=== PATIENT | female | born 1955 | race Caucasian/White ===

== ENCOUNTER → 2021-01-23 10:42 | Outpatient (CLI) | payer MEDICARE, BC, SELFPAY ==
[2021-01-23 11:18] LABS: Bacteria Urine None Seen; RBC Urine None Seen (0-5/HPF); WBC Urine None Seen (0-5/HPF)
[2021-01-23 12:08] LABS: Add Manual Diff / Slide Review NO; Basophils Absolute Auto 0 /uL (0-100); Basophils Percent Auto 0.5 % (0-2); Eosinophils Absolute Auto 100 /uL (0-450); Eosinophils Percent Auto 1.4 % (2-4); Hematocrit 47.1 % (36-46); Hemoglobin 16.1 g/dL (12.0-16.0); Lymphocytes Absolute Auto 1700 /uL (1100-4500); Lymphocytes Percent Auto 34.8 % (25-40); Mean Corpuscular HGB Conc 34.2 % (30-36); Mean Corpuscular Hemoglobin 30.2 PG (26-34); Mean Corpuscular Volume 88.3 fL (80-100); Monocytes Absolute Auto 500 /uL (0-900); Monocytes Percent Auto 10.4 % (3-14); Neutrophils Absolute Auto 2500 /uL (1500-7000); Neutrophils Percent Auto 52.9 % (50-75); Platelet Count 225 X10^3/uL (150-400); Red Blood Cell Count 5.33 X10^6/uL (4.0-5.2); Red Cell Distribution Width 13.9 % (11.6-14.8); White Blood Cell Count 4.8 X10^3/uL (4.5-11.0)
[2021-01-23 12:16] LABS: Appearance Urine UA CLEAR; Bilirubin Urine UA NEGATIVE (NEGATIVE); Color Urine UA YELLOW; Glucose Urine UA NEGATIVE (Negative); Ketones Urine UA NEGATIVE (NEGATIVE); Leukocyte Esterase Urine UA NEGATIVE (NEGATIVE); Nitrite Urine UA NEGATIVE (Negative); Occult Blood Urine UA NEGATIVE (Negative); Protein Urine UA NEGATIVE (Negative); Urobilinogen Urine UA 0.2 E.U./dL (0.2)
[2021-01-23 12:24] LABS: pH Urine UA 7.5 (4.5-8.0)
[2021-01-23 12:26] LABS: Hemoglobin A1C% w Est Avg Glu 5.9 % (4.0-6.0)
[2021-01-23 12:30] LABS: BUN Creatinine Ratio 25.9 (6-22); Blood Urea Nitrogen 14 mg/dL (7-17); Calcium 10.4 mg/dL (8.4-10.2); Carbon Dioxide 24 mmol/L (22-32); Chloride 107 mmol/L (98-107); Estimated Glomerular Filt Rate > 60.0 mL/min (>60); Glucose 105 mg/dL (80-110); HEMOLYSIS < 15 (0-50); Potassium 4.4 mmol/L (3.4-5.1); Sodium 138 mmol/L (137-145)
[2021-01-23 12:37] LABS: Amorphous Sediment Urine 1+; Culture Indicated Urine Cult Not Indicated
== END ==
PROVIDERS: Referring Provider Orthopaedic Surgery; Visit Provider Orthopaedic Surgery
DX: Z01.818 Encounter for other preprocedural examination (principal); R73.9 Hyperglycemia, unspecified; Z01.812 Encounter for preprocedural laboratory examination; N39.0 Urinary tract infection, site not specified
CPT/HCPCS: 36415; 80048; 81001; 83036; 85025; 93005; 93010

== ENCOUNTER → 2021-02-04 10:54 | Outpatient (CLI) | payer MEDICARE, BC, SELFPAY ==
--- NOTE | 2021-02-04 | DI.MRI.S_ITS ---
PROCEDURE: MR KNEE LT WO CON INDICATIONS: Unilateral post-traumatic osteoarthritis, left kne TECHNIQUE: [employer] protocol was performed. Noncontrast sagittal PD fast spin echo and T2 fast spin echo with fat saturation, sagittal 3-D FLASH with fat saturation; coronal T1 spin echo and PD fast spin echo with fat saturation, and axial PD fast spin echo with fat saturation through the knee. COMPARISON: None. FINDINGS: Menisci: Medial meniscus: Severe macerated tear involving the posterior horn body and posterior root of the medial meniscus. There is near complete extrusion Lateral meniscus: Lateral meniscal tear involving the body with truncation of the free margin. Cruciate ligaments: Anterior cruciate ligament: Not seen in keeping with rupture although this could be a chronic finding. Posterior cruciate ligament: Intact. Medial structures: The medial collateral ligament: There is medial bowing of the medial collateral ligament, with mild internal signal changes and no complete rupture. There is adjacent soft tissue edema. The appearance could reflect reactive changes to medial compartment pathology, versus low-grade sprain of the MCL. Semimembranosus tendon: Mild insertional tendinopathy. Visualized pes anserinus tendons: Intact. Bursal fluid: none. Lateral structures: The lateral collateral ligament intact. Biceps femoris tendon appears intact. Popliteus tendon grossly unremarkable. Iliotibial band appears intact. Anterior structures: Quadriceps tendon: Intact. Medial patellofemoral ligament: Intact. Lateral patellofemoral ligament: Intact. Patellar tendon: Mild tendinopathy. Anterior soft tissues: Prepatellar and superficial infrapatellar subcutaneous edema/fluid. Deep infrapatellar region: Trace fluid Bones and cartilage: Marrow: No focal marrow contusion or discrete low signal fracture line. Medial compartment: Full-thickness femoral and tibial articular cartilage loss Lateral compartment: Diffuse partial-thickness femoral and tibial articular cartilage loss. Patellofemoral compartment: Partial-thickness loss and surface fraying of the cartilage overlying the medial patellar facet and the central femoral trochlea. Joint space: Effusion: No pathologic knee joint effusion. Popliteal fossa: No Akers's cyst. Loose bodies: None. IMPRESSION: Severe macerated tear involving the medial meniscus posterior horn, body and posterior root. Near complete extrusion. Adjacent MCL changes as above. Lateral meniscal tear involving the body. Rupture of the anterior cruciate ligament, possibly chronic finding. Mild patellar tendinopathy Severe degenerative joint disease with full-thickness chondral loss seen in the medial compartment. Dictated by: Rolando Dawson M.D. on 02/04/2021 at 12:36 Approved by: Rolando Dawson M.D. on 02/04/2021 at 12:42
== END ==
PROVIDERS: Referring Provider Orthopaedic Surgery; Visit Provider Orthopaedic Surgery
DX: M17.32 Unilateral post-traumatic osteoarthritis, left knee (principal); S83.242A Other tear of medial meniscus, current injury, left knee, initial encounter; S83.282A Other tear of lateral meniscus, current injury, left knee, initial encounter; S83.512A Sprain of anterior cruciate ligament of left knee, initial encounter
CPT/HCPCS: 73721

== ENCOUNTER → 2021-03-09 09:11 | Outpatient (CLI) | payer MEDICARE, BC, SELFPAY ==
[2021-03-09 11:13] LABS: COVID19 -Nasal RAPID Negative (Negative)
== END ==
PROVIDERS: PCP Nurse Practitioner; Visit Provider Nurse Practitioner
DX: Z01.812 Encounter for preprocedural laboratory examination (principal); Z20.822 Contact with and (suspected) exposure to COVID-19
CPT/HCPCS: 87635; C9803

== ENCOUNTER 2021-03-11 08:30 | Observation (INO) | payer MEDICARE, BC, SELFPAY ==
[2021-02-26 08:50] VITALS: BMI 33.3
[2021-03-10] VITALS (15 sets, daily range): BP systolic 80–124; BP diastolic 49–89; PULSE 70–93; RESP 8–20; TEMP 35.7–36.9; O2SAT 92–99; BMI 33.3
--- NOTE | 2021-03-10 06:38 | DI.RAD.S_ITS ---
PROCEDURE: XR KNEE LT 1TO2V INDICATIONS: left TKA TECHNIQUE: Two view(s) of the knee acquired. COMPARISON: None. FINDINGS: Bones: Patient is status post knee joint arthroplasty. Hardware components are in expected positions. Visualized bony structures are intact. Soft tissues: Overlying postoperative changes are noted. IMPRESSION: Expected postoperative appearance post left TKA. Dictated by: Elda Nolasco M.D. on 03/10/2021 at 13:01 Approved by: Elda Nolasco M.D. on 03/10/2021 at 13:01
[2021-03-10] MEDS: LACTATED RINGERS 1,000 ML 42 ML IV ×2 (07:00→09:40)
[2021-03-10] MEDS: ACETAMINOPHEN 325 MG TABLET 975 MG PO (07:11)
[2021-03-10] MEDS: CELECOXIB 200 MG CAPSULE PO (07:11)
[2021-03-10] MEDS: PREGABALIN 75 MG CAPSULE PO (07:11)
[2021-03-10] MEDS: VANCOMYCIN 1,000 MG/200 ML PIGGYBACK 200 MG IV (07:12)
--- NOTE | 2021-03-10 07:32 | P.OP_ITS ---
Operative Date/Time/Diagnoses Date of procedure: 03/10/21 Time of procedure: 07:55 Pre-op diagnosis: Left knee osteoarthritis history ACL reconstruction Post-op diagnosis: same Procedure & Clinicians Procedure: Left total knee arthroplasty Same procedure as scheduled: Yes Indications: The patient has had progressively worsening left knee pain with radiographic changes consistent with arthritis. Non-operative management has failed and the patient has requested total knee replacement. The risks, benefits and alternatives to surgery were discussed with the patient prior to proceeding. Risks discussed included, but were not limited to, failure to relieve pain, stiffness, infection, nerve damage, deep venous thrombosis, pulmonary embolism, stroke, coma, heart attack, permanent paralysis and , as well as the potential need for eventual revision of the prosthetic. Surgeon: Nati Negron Refueling Ramp Supervisor: Obey Cunningham Anesthesia Type: Spinal Operative Notes Findings: Severe left knee osteoarthritis, good stability Closure Type: primary Specimen(s): none sent Prosthetic devices, grafts, tissues, transplants, or devices: Negron [employer] [facility] BCS 2 size 5 femur, size 4 tibia, +9 poly, 35 mm patella +9 Applied: drain(s) Estimated Blood Loss (mL): 250 Blood products transfused: none Tourniquet time (min): 85 Procedure in detail: The patient was seen in the pre-operative area, where the patient identified the left knee as the operative site and this was marked with my initials. The patient received pre-operative antibiotics, and was taken to the operating room and placed on the operative table in the supine position. After satisfactory anesthesia, a hospice care sales consultant out was performed. The left leg was encircled with a tourniquet about the proximal thigh, and the leg was prepared from the toes to the tourniquet with ChloroPrep in the usual fashion and draped through sterile drapes. The leg was elevated and exsanguinated with Eschmark bandage and the tourniquet inflated to [250] mmHg pressure. The knee was approached through an approximately 18 cm incision centered over the patella and carried into the knee through a medial parapatellar arthrotomy. A portion of the medial and lateral meniscus was resected. Soft tissue was carefully mobilized around the patella the patella was measured with a caliper. Bone was resected from the patella and the patellar height was reconstituted with up an appropriate sized patellar component. For a cover was then placed on the patella. A small amount of additional medial and lateral meniscus was resect ed. The visionary guide fit was inadvertently dropped. A hole was made in the medullary canal. The femur was cut at 5? standard cut which looked like an appropriate distal femoral cut. It was sized and noted to be a 5 which was consistent with the preoperative plan. The rotation was assessed and 3? of external rotation looked appropriate. The appropriate size femoral guide was placed on the distal femur and finishing cuts were made. There was no evidence of notching. The anterior, posterior and chamfer cuts were then made. The posterior osteophytes and soft tissues were then removed. The posterior capsule was injected with part of a mixture of 60 ml 0.25% Marcaine mixed with 20 ml Exparel for post operative pain control. The remainder of this mixture was injected into the capsule and subcutaneous tissues during cement curing. The tibia was prepared and the visionaire guide fit well to the distal tibia. The rotation was assessed. The patient was placed in extension residual medial and lateral meniscus as well as any residual bone was carefully resected. [No] additional tibia was resected. Hemostasis was achieved especially posteriorly. Additional local was injected into the posterior capsule. The extension gap was assessed and additional releases for gap balancing were performed as necessary. The femoral component was trial was placed and the notch was finished. Trial tibial and femoral components were then placed and the knee placed through a range of motion. Range of motion was [0-130], with good stability throughout the range. The trials were then removed, and the tibia was finished. The bone was prepared with pulsatile lavage, and dried with a sponge. Cement was applied and the final prosthetics placed. Excess cement was removed during and after cement curing. A brief Betadine soak was performed. After confirming there was no extruded cement posteriorly, the final tibial insert was placed. The knee was copiously irrigated and the tourniquet deflated. Hemostasis was obtained with the Bovie cautery. A drain was placed and brought out superolaterally. The capsule was closed with interrupted # 1 Vicryl suture. The subcutaneous layer was closed with barbed sutures, and the skin with a running 3-0 V-Lock suture and Surgical glue. An Aquacel Ag dressing was applied and the patient was taken to recovery having tolerated the procedure well. Complications: none Post-operative Condition: stable Disposition: Acute Care Plan for aftercare: The patient will be maintained on a standard total knee replacement protocol with weight bearing as tolerated. The patient will receive aspirin and sequential compression devices for DVT prophylaxis. The patient will be discharged home when safe for the home environment.
--- NOTE | 2021-03-10 07:32 | PM.PREOP ---
Pre-operative Note COVID-19 COVID-19 status: Negative Interval Note History & Physical reviewed/Exam performed by Physician: Yes Changes to H&P: No
[2021-03-10] MEDS: CLINDAMYCIN 900 MG/50 ML PIGGYBACK 50 MG IV ×2 (08:18→15:56)
[2021-03-10] MEDS: BUPIVACAINE 0.25% W/ EPI 30 ML VIAL 60 ML INJ (08:27)
[2021-03-10] MEDS: TRANEXAMIC ACID 1,000 MG VIAL 2000 MG INJ (08:27)
[2021-03-10] MEDS: BUPIVACAINE LIPOSOME 266 MG/20 ML VIAL INJ (08:28)
[2021-03-10] MEDS: SODIUM CHLORIDE IRRIG SOLUTION 250 ML, POVIDONE-IODINE SPONGE STICKS 1 APPLIC IRR (08:29)
--- NOTE | 2021-03-10 08:32 | SUR.OPER ---
Supine on padded OR bed. Pillow under head, arms secured on padded armboards <90 degree abduction. Safety belt across torso. Non-operative leg secured with tape over blanket over lower leg. Operative leg secured in DeMayo/Yeyo/Nathe positioner. Foam padded brace at thigh of operative leg.
[2021-03-10] MEDS: fentaNYL 100 MCG/2 ML INJ IV ×2 (10:41→10:45)
[2021-03-10] MEDS: OXYCODONE IR 5 MG TABLET PO ×3 (10:42→18:03)
--- NOTE | 2021-03-10 11:55 | PC.NURSE ---
Day shift: Pt on unit from PACU at approx 1150. She is A&Ox4. Tolerating calf SCD's. Her spouse in room for support. On 2L NC 96%. Encouraged to cough and deep breath. Rates left knee pain at 5/10. Don-vac in to be unclamped at 1210 per CABLE TV INSTALLER. Denies any nausea. CMS intact. VS ok with BP 102/60. Denies any chest pain or lightheadedness. Oreinted to room and call light. Agrees to not get OOB w/o help from staff. WILL and Aquacel CDI. Per PACU report don-vac site needed to be reinforced due to some leaking. Quarter sized blood spot on outside of WILL wrap present. Will continue with post-op plan of care.
[2021-03-10] MEDS: LACTATED RINGERS 1,000 ML 100 ML IV (12:17)
[2021-03-10] MEDS: IBUPROFEN 400 MG TABLET PO ×3 (12:24→22:34)
[2021-03-10] MEDS: polyethylene glycoL 3350 17 GM POWD.PACK PO (12:24)
--- NOTE | 2021-03-10 13:10 | PC.NURSE ---
Day shift: Don-vac unclamped at 1210.
--- NOTE | 2021-03-10 13:50 | PT.IIE ---
Current Diagnoses Unilateral post-traumatic osteoarthritis, left knee (03/10/21) Surgery Performed Operation Date: 03/10/21 07:45 Actual Procedures p Total Knee Arthroplasty(Left) - Nati Negron MD Medical History (Last Updated 02/26/21 @ 10:25 by April Evans, RN) Acid reflux Bilateral cataracts Breast cancer, left (2014) History of chemotherapy (2015) Hypercalcemia Hypercalciuria Hypophosphatemia Osteoarthritis Osteopenia Primary hyperparathyroidism Physical Therapy Inpatient Evaluation/Re-Eval M1 PT/OT-IP Prior Functional Status Start: 03/10/21 15:42 Freq: NEEDED Status: Active Protocol: Document 03/10/21 13:50 AB (Rec: 03/10/21 15:59 AB [id number]) Medical Review Prior Functional Status Medical History Reviewed Yes Communication able to make needs known Mobility and Gait pt stated that she is independent with all mobilities and ambulation without AD Social History Household Members spouse Living Arrangements House Number of Floors (Floors) One Floor Number of Stairs To Enter/Railing? 1 step to enter from the garage but can also go in from the front and does not have any steps to enter but pt prefers to go in throught the garage Home Environment High Toilet,Walk in Shower, Built-In Shower Seat Home Equipment Front Wheel Walker,Straight Cane,Shower Seat with Backrest ,Hand Held Shower M2 PT-IP Current Condition Start: 03/10/21 15:42 Freq: NEEDED Status: Active Protocol: Document 03/10/21 13:50 AB (Rec: 03/10/21 15:59 AB [id number]) Physical Therapy Current Condition Current Condition Evaluation Date 03/10/21 Treatment Diagnosis s/p L TKA; difficulty in walking Onset Date 03/10/21 Weight Bearing Status Weight Bearing Status Weight Bear as Tolerated Allowed Weight Bearing Amount (enter % LLE WBAT or #) (%) M3 PT-IP Subjective Start: 03/10/21 15:42 Freq: NEEDED Status: Active Protocol: Document 03/10/21 13:50 AB (Rec: 03/10/21 15:59 AB [id number]) Subjective Physical Therapy Visit Type Type Initial Evaluation Visit Start Time 13:50 Visit Stop Time 14:32 Total Visit Minutes 42 Number of DIFFERENTIAL REPAIRER Visits 0 Physical Therapy Visit Comments Patient Comments agreeable to do PT Therapy Pain Assessment Pain When Pain Assessed At Rest Pain Present Pain Present Pain Reported Location left knee Intensity 4 Scale Used Numeric (0 - 10) Pain Management Techniques Apply Cold,Modification of Treatment,Re-positioning, Timing of Activity with Medications M4 PT-IP Mobility and Gait Start: 03/10/21 15:42 Freq: NEEDED Status: Active Protocol: Document 03/10/21 13:50 AB (Rec: 03/10/21 15:59 AB [id number]) PT-Bed Mobility Assessment Supine to Sit Supine to Sit Standby Assistance Sit to Supine Sit to Supine Standby Assistance Scooting Scooting to Edge of Bed Standby Assistance PT-Transfer Assessment Comments Mobility Comments pt agreed to do PT. informed nurse that hemovac is distended and with blood leak through the josy wrap. nurse checked and re compressed hemovac site. MMT conducted and noticed hemovac is distending again and blood leak through dressing. nurse checked and removed josy wrap, reinforced hemovac site, recompressed hemovac and cleared to do more with PT. noted blood on dressing. BP in supine 124/75. pt complete supine to sit SBA. pt was able to sit on EOB SBA to CGA. c/o lighheadedess and after a few seconds nausea. BP checked in sittin/79. pt sat on EOB for a few more minutes. Nurse came and stated that pt has to go back to bed and the doctor/PA has to make sure that hemovac is ok. pt completed sit to supine SBA. positioned in bed . BP checked: 106/67. continues to c/o nausea. informed nurse. call light and table placed within reach. PT-Balance Assessment Sitting Balance and Reactions Static Sitting Balance Ability Good Dynamic Sitting Balance Ability Fair M5 PT-IP Objective Assessments Start: 03/10/21 15:42 Freq: NEEDED Status: Active Protocol: Document 03/10/21 13:50 AB (Rec: 03/10/21 15:59 AB [id number]) Orientation Orientation/Cognition Level of Alertness Alert Orientation Name,Place,Situation Language Function Ability No Deficits Noted Safety Awareness Understands Safety Issues Memory Description No Deficits Noted Gross Range of Motion Lower Extremity ROM Assessment Within Functional Limits Strength Lower Extremity Strength Assessment Left Impaired Hip 4+/5 Knee 4-/5 Coordination Assessment Gross Coordination Gross Coordination WNL Sensation Assessment Sensation Gross Sensation WNL Muscle Tone Muscle Tone WNL Yes M6 PT-IP Treatment Start: 03/10/21 15:42 Freq: NEEDED Status: Active Protocol: Document 03/10/21 13:50 AB (Rec: 03/10/21 15:59 AB [id number]) Physical Therapy Treatment Education Education Provided Precautions,Weight Bearing Status,Post-Op Packet,Safety M7 PT-IP Assessment and Plan Start: 03/10/21 15:42 Freq: NEEDED Status: Active Protocol: Document 03/10/21 13:50 AB (Rec: 03/10/21 15:59 AB [id number]) PT Summary Assessment and Plan Potential Rehabilitation Potential Good Status of Condition at Evaluation Evolving Summary Impairments Pain,ROM,Strength,Balance, Coordination,Sensation,Tone, Cognition,Bed Mobility, Transfers,Gait,Activity Tolerance Assessment Summary pt s/p L TKA and POD 0. pt willing to do PT but has hemovac issues and was limited with mobility due to this and also has c/o nausea/ lightheadedness with decrease in BP sitting on EOB. will continue to assess mobility for safe d/c home. pt stated that she is set up for outpt PT. Goals Bed Mobility Goal Independent Transfer Goal Independent,Front Wheeled Walker Gait Goal Independent,Front Wheel Walker Gait Distance 150 Other Goals up/down 1 step using FWW SBA Days to Meet Goals 5 Frequency of Treatment Frequency Of Treatment Twice a Day Treatment Plan Physical Therapy Treatment Plan Bed Mobility Training,Transfer Training,Gait Training, Therapeutic Exercise,Balance Retraining,Post Op Education, Discharge Planning,Hot or Cold Pack,Neuromuscular Re-ed, Coordination Retraining,Manual Therapy Precautions Other Precautions LLE WBAT Recommendations To Nursing Amount of Assist Needed PT/OT Assist Only Discharge Recommendations PT Discharge Recommendations Home with Assistance, Outpatient PT Transportation Needs at Discharge Private Vehicle
[2021-03-10] MEDS: ACETAMINOPHEN 325 MG TABLET 650 MG PO ×2 (14:02→22:34)
--- NOTE | 2021-03-10 14:51 | PC.NURSE ---
Day shift: Don-vac is not remaining patent to suction at this time. Small amount of leaking from the insertion area. Reinforced with 4x4 and tegaderm. WILL wrap removed to visualize that site and the distal portion is saturated with blood. Some shadow drainage present in the middle portion as well. Aquacel is approx 50% saturated at this time (1445). PT was asked to not get Pt OOB at this time as well. VS remain WNL. Pt did report that she felt light headed when sitting at the side of the bed. Ximena (WHITE SHOE EXAMINER) was informed about the above and will get this writers message to DR Negron. Dr Negron in OR at this time. THis scientific writer also called into the OR (ext [phone]) and no answer. Pt also remains A&Ox4 and in good spirits. collector of aquarium specimens Mily also looked at Pt's knee at tis time. Will place WILL wrap back on knee at this time.
[2021-03-10] MEDS: ONDANSETRON 4 MG/2 ML INJ IV (18:02)
[2021-03-10] MEDS: DOCUSATE 100 MG CAPSULE PO (22:34)
[2021-03-11] MEDS: OXYCODONE IR 5 MG TABLET PO ×3 (00:14→08:37)
[2021-03-11] MEDS: IBUPROFEN 400 MG TABLET PO ×3 (00:14→08:37)
[2021-03-11] MEDS: CLINDAMYCIN 900 MG/50 ML PIGGYBACK 50 MG IV (00:14)
[2021-03-11 00:20] VITALS: BP 132/77; PULSE 90; RESP 18; TEMP 36.4; O2SAT 97
[2021-03-11 03:00] VITALS: BP 134/72; PULSE 87; RESP 18; TEMP 36.3; O2SAT 97
[2021-03-11 07:39] LABS: Hematocrit 41.4 % (36-46); Hemoglobin 13.9 g/dL (12.0-16.0)
--- NOTE | 2021-03-11 07:50 | P.DS_ITS ---
History of Present Illness History of Present Illness Date Patient Seen: 03/11/21 Time Patient Seen: 07:50 Chief complaint: Left Total Knee Arthroplasty *OPB* Narrative: Refer to previous HPI. Discharge Providers Provider Discharge Date: 03/11/21 Primary care physician: SHAHEEN Hilario Consults: 02/27/21 09:02 Consult to Anesthesiology Routine Comment: Consulting Provider: Anesthesiologist Reason for consultation: PAC courtesy re: Abnormal pre-op EKG 03/10/21 06:38 Consult to Anesthesiology Routine Comment: Consulting Provider: Anesthesiologist Reason for consultation: Regional block for post operative pain control 03/10/21 11:54 Consult to Discharge Planning Routine Comment: Consult to Physical Therapy Evaluate & Treat Comment: Physician Instructions: postop TKA protocol Consult to Respiratory Therapy Evaluate & Treat Comment: Physician Instructions: Evaluate and treat Discharge provider: Obey Cunningham PA-C Summary Hospital Course Discharge Diagnosis: Left knee osteoarthritis Status post left total knee arthroplasty Hospital Course: Patient was admitted to the hospital following the above-listed procedure for the above-listed diagnosis. Following the procedure the patient is a convalescing appropriately in her pain has been managed with current pain management regimen. Aspirin 81 mg twice daily has been administered for DVT prophylaxis along with the assistance of sequential compression devices. Aquacel dressing over the incision site is remain clean, dry, and intact following surgery. Patient has successfully worked on ambulation with the assistance of a front wheel walker with physical therapy. She has remained we ight-bearing as tolerated with the assistance of a front wheeled walker. She has remained in standard total knee replacement protocol. Throughout the course of time the hospital the patient has denied fever, chills, nausea, chest pain, shortness of breath, or urinary retention. Status at Discharge Cognitive/behavioral status at discharge: oriented Functional status at discharge: uses cane/walker Overall status at discharge: patient is progressing back to baseline Exam Vital Signs (past 8 hours): - 03/11/21 00:20 03/11/21 03:00 Temperature 97.6 F 97.4 F L Pulse Rate 90 87 Respiratory Rate 18 18 Blood Pressure 132/77 134/72 Pulse Oximetry 97 97 Oxygen Delivery Method Room Air Oxygen Flow Rate 0 Narrative Exam Narrative: Pleasant 65-year-old female postop day 1 status post left total knee arthroplasty. Patient is resting comfortably in room bed, is in no acute distress, and is alert and oriented x3. Skin is warm and dry, and the skin surrounding the incision site is free of erythema, warmth, induration, or discharge. Aquacel dressing over the incision site is intact, with strike through noted on the distal half of the bandage. Good sensation appreciated throughout the bilateral lower extremities to light touch. Gross motor function intact. Calves are soft and nontender, negative Homans sign. No other signs of DVT appreciated. Const General: cooperative, healthy appearing and comfortable Resp Effort & Inspection: normal respiratory effort and able to speak in complete sentences Skin General: no rashes or lesions noted Objective Labs Result Diagrams: 03/11/21 07:15 Labs: Laboratory Results - last 24 hr 03/11/21 07:15 Hgb 13.9 Hct 41.4 PFSH Medical History Acid reflux Bilateral cataracts Breast cancer, left (2014) History of chemotherapy (2014) Hypercalcemia Hypercalciuria Hypophosphatemia Osteoarthritis Osteopenia Primary hyperparathyroidism Surgical History History of arthroscopy of right shoulder (07/2013) History of hysterectomy (2001) History of lumpectomy of left breast (2014) History of removal of Port-a-Cath History of right knee surgery (2001) Hx of arthroscopy of left knee (2008) Hx of colonoscopy (2014) Hx of left knee surgery (1981) Hx of left knee surgery (1981) Hx of right knee surgery (09/2007) Hx of tonsillectomy Social History household members: spouse Smoking Status: Former smoker alcohol intake: current Discharge Assessment & Plan Assessment and Plan Assessment: Patient is doing well and is stable. Plan of Treatment: Patient is to continue physical therapy in the outpatient setting following discharge from the hospital. First postoperative visit is scheduled for 2 weeks following discharge from hospital. Current pain management regimen is to be continued as it is adequately controlled the patient's pain level. Aspirin 81 mg twice daily is to be continued for 6 weeks for DVT prophylaxis. Aquacel dressing over the incision site is to remain clean, dry, and intact for 2 weeks. Contact clinic if the dressing becomes damaged or soiled. Patient is to remain weight-bearing as tolerated with the assistance of a front wheeled walker, standard total knee replacement protocol. Patient is to contact clinic with any concerns or questions. Any signs of increased redness, swelling, warmth, pain, or discharge from around the incision site should be reported to the clinic. Patient is to avoid placing topical ointments over the incision site or soaking the incision site. Discharge Plan Discharge Plan Patient Disposition: Home Provider Discharge Comment: Patient cleared for discharge pending PT clearance. Discharge orders & Medications Discharge Orders: Discharge (Order); Ordered 03/11/21 Ordered By: Obey Cunningham Prescriptions: New acetaminophen 325 mg Tablet 650 mg PO TID Qty: 90 RF: 0 aspirin 81 mg Tablet,Delayed Release (Dr/Ec) 81 mg PO BID Qty: 90 RF: 0 ibuprofen 400 mg Tablet 400 mg PO Q4HR Qty: 90 RF: 0 oxycodone 10 mg Tablet 10 mg PO Q3HR PRN (Reason: Pain, Severe (7-10)) Qty: 42 RF: 0 Continued cholecalciferol (vitamin D3) [Vitamin D3] 125 mcg (5,000 unit) Tablet 125 mcg PO DAILY RF: 0 Follow up/Referrals: Meme Tate ARNP [Primary Care Provider] - Diet/Activity/Treatments Diet: Diet as Tolerated and Regular Activity: Weight-bearing as tolerated with the assistance of a front wheeled walker. Standard total knee replacement protocol. Skin/Wound/Dressing Care Report to your healthcare provider any signs of infection, such as:: chills, fever, night sweats, unusual drainage and unusual redness Dressing: Aquacel dressing over the incision site is to remain clean, dry, and intact for 2 weeks. Contact clinic if the dressing becomes damaged or soiled. Other wound treatment: Avoid soaking the incision site. Avoid placing topical ointments over the incision site. Visit Report/Discharge Packet Instructions: DI for Knee Replacement Stand Alone Forms: Surgery Discharge Discharge Data Primary Care Provider: Meme Tate Attending Provider: Nati Negron
[2021-03-11 08:12] VITALS: BP 126/71; PULSE 74; RESP 18; TEMP 36.2; O2SAT 96
[2021-03-11] MEDS: CHOLECALCIFEROL (VITAMIN D3) 5,000 UNIT TABLET 5000 UNIT PO (08:37)
[2021-03-11] MEDS: ACETAMINOPHEN 325 MG TABLET 650 MG PO (08:37)
[2021-03-11] MEDS: DOCUSATE 100 MG CAPSULE PO (08:37)
[2021-03-11] MEDS: ASPIRIN EC 81 MG TABLET PO (08:37)
--- NOTE | 2021-03-11 09:20 | PT.IPTN ---
Current Diagnoses Unilateral post-traumatic osteoarthritis, left knee (03/11/21) Surgery Performed Operation Date: 03/10/21 07:45 Actual Procedures p Total Knee Arthroplasty(Left) - Nati Negron MD Physical Therapy Treatment Note M2 PT-IP Current Condition Start: 03/10/21 15:42 Freq: NEEDED Status: Discharge Protocol: Document 03/10/21 13:50 AB (Rec: 03/10/21 15:59 AB [id number]) Physical Therapy Current Condition Current Condition Evaluation Date 03/10/21 Treatment Diagnosis s/p L TKA; difficulty in walking Onset Date 03/10/21 Weight Bearing Status Weight Bearing Status Weight Bear as Tolerated Allowed Weight Bearing Amount (enter % LLE WBAT or #) (%) M3 PT-IP Subjective Start: 03/10/21 15:42 Freq: NEEDED Status: Discharge Protocol: Document 03/11/21 09:20 AB (Rec: 03/11/21 12:32 AB [id number]) Subjective Physical Therapy Visit Type Type Treatment Note Visit Start Time 09:20 Visit Stop Time 09:56 Total Visit Minutes 36 Number of STOCK FEEDER Visits 0 Physical Therapy Visit Comments Patient Comments pt is agreeable to do PT Therapy Pain Assessment Pain When Pain Assessed At Rest Pain Present Pain Present Pain Reported Location left knee Intensity 3 Scale Used Numeric (0 - 10) Pain Management Techniques Apply Cold,Modification of Treatment,Re-positioning, Timing of Activity with Medications M4 PT-IP Mobility and Gait Start: 03/10/21 15:42 Freq: NEEDED Status: Discharge Protocol: Document 03/11/21 09:20 AB (Rec: 03/11/21 12:32 AB [id number]) PT-Bed Mobility Assessment Supine to Sit Supine to Sit Standby Assistance PT-Transfer Assessment Sit to and From Stand Sit to and from Stand Standby Assistance,Use of Upper Extremities Equipment Transfer Assistive Device Gait Belt,Front Wheeled Walker Orthotic/Prosthetic Devices or Brace: No Transfers Transfer Destination Chair Transfer Technique ambulated Transfer Ability Level of Assist Standby Assistance,Contact Guard Assistance,Use of Upper Extremities Comments Mobility Comments BP in supine: 123/73. completed heel slides supin in bed prior to mobility. completed supine to sit SBA. no c/o dizziness. BP: 136/85. pt completed sit to stand SBA and ambulated in room using FWW SBA. pt sat on chair. agreed to do stairs. and completed sit to stand from chair SBA and ambulated using FWW 250 ft SBA. completed up/ down platform step using FWW x 2 sets initially requiring cues but able to complete without cues on 2nd set CGA for safety. pt ambulate dback to her room SBA. agreed to sit up on chair and positioned . call light and table placed within reach. Gait Assessment Gait Gait Assistance Required: Standby Assistance,Contact Guard Assist Distance (Feet) 250 Able to Maintain Weight Bearing Status Yes During Gait Assistive Devices Assistive Device Gait Belt,Front Wheeled Walker Orthotic/Prosthetic Devices or Brace: No Gait Deviations General Gait Pattern Antalgic,Decreased Stride Length,Decreased Feet Clearance Factors Limiting Gait Function Factors Limiting Gait Function Decreased Activity Tolerance, Decreased Strength,Limited Range of Motion,Pain,Poor Balance,Poor Safety Awareness Stair Climbing Assessment Evaluation Level of Assist On Stairs Contact Guard Assistance Devices Stair Climbing Assistive Devices Front Wheel Walker Technique/Endurance Stair Climbing Direction Ascend and Descend Stair Climbing Technique Step to Step Number of Steps Climbed 1 Stair Climbing Set # Repetitions (reps) 2 Comments Stair Climbing Comments pls refer to mobility section for details M5 PT-IP Objective Assessments Start: 03/10/21 15:42 Freq: NEEDED Status: Discharge Protocol: Document 03/10/21 13:50 AB (Rec: 03/10/21 15:59 AB [id number]) Orientation Orientation/Cognition Level of Alertness Alert Orientation Name,Place,Situation Language Function Ability No Deficits Noted Safety Awareness Understands Safety Issues Memory Description No Deficits Noted Gross Range of Motion Lower Extremity ROM Assessment Within Functional Limits Strength Lower Extremity Strength Assessment Left Impaired Hip 4+/5 Knee 4-/5 Coordination Assessment Gross Coordination Gross Coordination WNL Sensation Assessment Sensation Gross Sensation WNL Muscle Tone Muscle Tone WNL Yes M6 PT-IP Treatment Start: 03/10/21 15:42 Freq: NEEDED Status: Discharge Protocol: Document 03/11/21 09:20 AB (Rec: 03/11/21 12:32 AB [id number]) Physical Therapy Treatment Exercises Exercises Heel Slides Education Education Provided Safety M7 PT-IP Assessment and Plan Start: 03/10/21 15:42 Freq: NEEDED Status: Discharge Protocol: Document 03/11/21 09:20 AB (Rec: 03/11/21 12:32 AB [id number]) PT Summary Assessment and Plan Potential Rehabilitation Potential Good Summary Impairments Pain,ROM,Strength,Balance, Coordination,Bed Mobility, Transfers,Gait,Activity Tolerance Progress Towards Goals Slow Progress due to Activity Tolerance Assessment Summary pt requiring SBA with mobility and plans to go home with spouse to assist her. pt may go home when medically stable. pt has outpt PT set up already. Goals Bed Mobility Goal Independent Transfer Goal Independent,Front Wheeled Walker Gait Goal Independent,Front Wheel Walker Gait Distance 150 Other Goals up/down 1 step using FWW SBA Days to Meet Goals 5 Frequency of Treatment Frequency Of Treatment Twice a Day Treatment Plan Physical Therapy Treatment Plan Bed Mobility Training,Transfer Training,Gait Training, Therapeutic Exercise,Balance Retraining,Post Op Education, Discharge Planning,Hot or Cold Pack,Neuromuscular Re-ed, Coordination Retraining,Manual Therapy Precautions Other Precautions LLE WBAT Recommendations To Nursing Amount of Assist Needed Standby Assistance Discharge Recommendations PT Discharge Recommendations Home with Assistance, Outpatient PT Transportation Needs at Discharge Private Vehicle
--- NOTE | 2021-03-11 10:29 | PC.NURSE ---
A&Ox4. VSS. Pain 11/08, given PRN oxycodone and scheduled Tylenol and ibuprofen which brought her pain down to a 2. Worked with PT. Discharged instructions reviewed, questions answered. Prescriptions given to patient. IV removed, catheter intact, tolerated well. driving home.
--- NOTE | 2021-03-11 11:48 | CM.DANOTE ---
DCP/assessment: Reviewed chart. Patient is a 65yr old female admitted to [facility] for elective left TKA performed on 03-10-[address] Negron. PCP is Dr. Jimenez. Primary payor is 1)Medicare 2)[facility]. Met with patient explained CM/SW role. Patient alert and oriented, preparing to d/c home at time of visit. Patient reports that she has all needed DME and outpatient therapy arranged. Patient cleared by therapy to return home when stable. P: Home today with no additional d/c planning needs. HOLLIE Alcala Discharge Planning/Care Management CM Discharge Assessment Start: 03/11/21 11:44 Freq: Status: Active Protocol: Document 03/11/21 11:44 KJS (Rec: 03/11/21 11:48 KJS [id number]) Discharge Planning Assessment Assigned Group Practice Pediatrician HOLLIE Alcala Contact Information Branden Torres (spouse) # [phone] Advance Directives? No History Provided By Patient,Medical Record Prior Living Arrangements House Household Members spouse Type of transporation used prior to Drives own vehicle admit Independent with ADL's Yes Is patient alert and oriented? Yes Caregiver for Another No DME Already Rented / Owned FWW / Walker Patient/Family Preference OP PT Therapy Barriers to Discharge No Discharge Plan Home Transportation Arrangement Family to provide transport. Referrals Initiated None needed Review Status In Process Next Review Type Continued Stay Review Pre-Anesthesia Assessment Start: 02/26/21 08:50 Freq: Status: Complete Protocol: Document 02/26/21 08:50 CAB (Rec: 02/26/21 09:49 CAB [id number]) Pre-Anesthesia Assessment Patient Information Reviewed Via Phone Assessment Assessment Completed With Patient Diagnostic Results BMP/CMP,CBC,EKG Comment Labs/EKG @ [facility] 01/23/21, COVID screen @ [facility] 03/09/21 Primary Care Provider Carmelo Jimenez Seen Specialist in Last 12 Months Yes Specialist Seen Centrifugal Spinner,Orthopedist Primary Language Slovak Shot Core Drill Operator Helper Required No Height 165.1 cm Weight 90.718 kg Body Mass Index (BMI) 33.3 Hearing Ability Normal Visual Assist Glasses Dentition Type Teeth, Natural Present Barriers to Learning None Hx Anesthesia Reactions No Hx Family Anesthesia Reaction No Hx Malignant Hyperthermia No Hx Blood Transfusions No Anesthesia Review Requested Yes: PAC courtesy re: Abnormal pre-op EKG alcohol intake current alcohol intake frequency holidays/special occasions only Smoking Status Former smoker Tobacco type cigarettes how long ago did patient quit smoking Quit 1994 Substance Use Type does not use Pain Present Pain Reported Musculoskeletal Symptoms Abnormal Gait,Difficulty Walking,Joint Pain History of Falling (Recent or History of No ) Patient is completely paralyzed or No completely immobile Mental Status Oriented to own ability Is patient on oxygen? No Does patient have WHITNEY/SOB No Hx Sleep Apnea No Currently Taking a Beta Kaylen No Can You Climb a Flight of Stairs Without Yes SOB Hx Chest Pain No Hx SOB No Hx Syncope or Dizziness No Anti-Coagulant Therapy No Has a Die Cleaner No Cardiac Testing No Hx Pacemaker/ICD No Pacemaker Rep Required? No Cardiac Clearance Received Not Applicable Diet Type At Home Regular dysphagia No Gastrointestinal Symptoms Reflux Urinary Catheter Present No Hx Urinary Self Catheterization No Diabetes No Patient No Lactating No Hx Drug Resistant Organism No Presence of External or Internal Medical No Devices Have you had any close contact with No someone diagnosed with COVID-19? Marital Status Lives With spouse Prior Living Arrangements House Number of Floors (Floors) One Floor Support System Spouse Does the Patient Have Assistance After Yes Surgery Patient Discharge Plan Description Return Home Comment Pt advised possible same day or overnight length of stay per surgeon Feels Safe in Current Environment Yes Been Physically Hurt or Threatened By a No Person in Current Environment Do you have thoughts of harming yourself None or others? Are you currently considering suicide? No Do you have a plan to hurt yourself or No Plan others? Do You Have Any Spiritual Beliefs That No May Affect Your HC Choices? Do You Have Any Cultural Practices That No May Affect Your HC Choices? Who Can We Speak to About Patient's Care Family, friends Identifying Code for Release of Patient Declines to issue Information Health Care Proxy/Next of Kin Branden () Health Care Proxy Emergency Contact Name Branden () Emergency Contact Advance Directives? No Power of Work Checker No PAC Instructions Do not shave/clip surgical site,Durable medical equipment ,Medications to take/avoid, Nasal antibiotic,No ETOH/ petroleum product on skin DOS, NPO,Post-op transportation,Pre -surgical wash,Sensory aids, Sturdy shoes/comfortable clothes,Do not bring valuables and remove jewelry
== END 2021-03-11 11:10 | disposition home or self-care (01) ==
LOC: OR 09:40 → AC 09:40
PROVIDERS: Admitting Provider Orthopaedic Surgery; PCP Nurse Practitioner; Referring Provider Orthopaedic Surgery; Visit Provider Orthopaedic Surgery
PROC: 0SRD0JZ Replacement of Left Knee Joint with Synthetic Substitute, Open Approach (ICD-10-PCS; CPT 27447; principal; 2021-03-10 07:45)
DX: M17.12 Unilateral primary osteoarthritis, left knee (principal); K21.9 Gastro-esophageal reflux disease without esophagitis
CPT/HCPCS: 27447; 36415; 73560; 85014; 85018; 97116; 97162; C1776; G0378; C9290; J1100; J2250; J2405; J2704; J3010